=== PATIENT | female | born 1980 | race Caucasian/White ===

== ENCOUNTER 2021-05-11 17:55 | Emergency (ER) | payer OTHER ==
[2021-05-11 23:02] LABS: BASOPHIL 0.2 % (0-2); EOSINOPHIL 6.2 % (0-5); HCT 41.6 % (37.0-47.0); HGB 13.6 g/dl (12.5-16.0); MCH 28.7 pg (25.0-31.0); MCHC 32.7 g/dL (32.0-36.0); MCV 87.8 fL (78.0-100.0); MONOCYTE 3.5 % (0-12); MPV 10.9 fL (6.0-9.5); NEUTROPHIL 86.5 % (41-80); NRBC 0; PLT 283 K/uL (150-400); RBC 4.74 M/uL (4.20-5.40); RDW 13.4 % (11.5-14.0); WBC 23.7 K/uL (4.0-10.5)
[2021-05-11 23:24] LABS: BUN/CREAT RATIO (CALC) 17.3 RATIO; CREATININE 0.75 mg/dL (0.51-0.95); POTASSIUM 3.8 mmol/L (3.5-5.1)
[2021-05-12 01:38] LABS: BILIRUBIN NEGATIVE (NEGATIVE); BLOOD NEGATIVE Ery/uL (NEGATIVE); CLARITY CLEAR (CLEAR); COLOR YELLOW (YELLOW); GLUCOSE (U) NORMAL (NORMAL); LEUKOCYTES NEGATIVE Leu/uL (NEGATIVE); NITRITE NEGATIVE (NEGATIVE); PROTEIN NEGATIVE (NEGATIVE); SPECIFIC GRAVITY >=1.030 (1.001-1.030); UROBILINOGEN 0.2 mg/dL (0.2-1.0); pH 5.5 (5.0-9.0)
[2021-05-12] MEDS ORDERED: CYCLOBENZAPRINE10 MG PO (02:18)
[2021-05-12] MEDS ORDERED: ONDANSETRON ODT4 MG PO (02:18)
[2021-05-12] MEDS ORDERED: PERCOCET 5-3251 EACH PO (02:18)
[2021-05-12] MEDS ORDERED: NAPROXEN500 MG PO (02:18)
== END 2021-05-12 02:30 | disposition home or self-care (01) ==
LOC: FER 17:55
PROVIDERS: Internal Medicine
DX: S22.21XA Fracture of manubrium, initial encounter for closed fracture (principal); S22.32XA Fracture of one rib, left side, initial encounter for closed fracture; S27.0XXA Traumatic pneumothorax, initial encounter; S30.1XXA Contusion of abdominal wall, initial encounter; I10 Essential (primary) hypertension; Z88.8 Allergy status to other drugs, medicaments and biological substances; V43.52XA Car driver injured in collision with other type car in traffic accident, initial encounter; Y92.410 Unspecified street and highway as the place of occurrence of the external cause
CPT/HCPCS: 36415; 71045; 71250; 80048; 81003; 85025; 96372; J1170